=== PATIENT | female | born 1960 | race Caucasian/White ===

== ENCOUNTER 2020-07-16 20:20 | Inpatient (IN) | payer BC ==
[2020-07-16] MEDS ORDERED: SODIUM CHLORIDE 0.9% 1,000 ML IV STA ×2 (20:42)
[2020-07-16] MEDS ORDERED: SODIUM CHLORIDE 0.9% 500 ML 500 ML IV STA (20:42)
[2020-07-16] MEDS ORDERED: LORazepam 2 MG/ML INJ IV STA (20:42)
--- NOTE | 2020-07-16 20:43 | ED ---
Psych HPI <Homero Madrigal - Last Filed: 07/17/20 12:15> - General Source: patient, RN notes reviewed, old records reviewed Mode of arrival: ambulatory Limitations: altered mental status - History of Present Illness MD Complaint: suicidal ideation, feels depressed, altered mental status -: unknown Associated Psychiatric Symptoms: depression, suicidal ideation History of same: Yes Quality: constant Improves With: none Worsens With: none Context: not taking psychiatric medications, significant life stressor Associated Symptoms: denies other symptoms Treatments Prior to Arrival: placed on mental health hold If Self Harm: admits thoughts of self harm, has plan <Homero Slaughter - Last Filed: 07/20/20 22:48> - General Chief Complaint: Psychiatric Symptoms Stated Complaint: mental health Time Seen by Provider: 07/16/20 20:27 - History of Present Illness Initial Comments: This is a 51-year-old female who presents under suicidal ideation secondary significant life stress or impending divorce, significant intoxication tonight making threats of suicide per report. Patient herself admits to not taking her normal medications both blood pressure medications as well as psychiatric medications (Homero Slaughter) - Related Data Home Medications Medication Instructions Recorded Confirmed Cetirizine HCl [Zyrtec] 10 mg PO DAILY 07/17/20 07/17/20 Cyanocobalamin (Vitamin B-12) 1,000 mcg PO DAILY 07/17/20 07/17/20 [Vitamin B-12] Metoprolol Succinate [Toprol XL] 50 mg PO DAILY 07/17/20 07/17/20 Omeprazole 20 mg PO DAILY 07/17/20 07/17/20 Venlafaxine HCl [Effexor XR] 75 mg PO DAILY 07/17/20 07/17/20 Allergies Allergy/AdvReac Type Severity Reaction Status Date / Time No Known Allergies Allergy Verified 07/17/20 16:45 Review of Systems ROS Other: All systems not noted in ROS Statement are negative. <Homero Madrigal - Last Filed: 07/17/20 12:15> ROS Other: All systems not noted in ROS Statement are negative. <Homero Slaughter - Last Filed: 07/20/20 22:48> ROS Statement: Those systems with pertinent positive or pertinent negative responses have been documented in the HPI. Past Medical History Past Medical History: Hypertension History of Any Multi-Drug Resistant Organisms: None Reported Additional Past Surgical History / Comment(s): broken pelvis and broken left chrissy t-surgical repair. Past Psychological History: Anxiety Smoking Status: Never smoker Past Alcohol Use History: Occasional Past Drug Use History: None Reported <Homero Slaughter - Last Filed: 07/20/20 22:48> General Exam General appearance: alert, in no apparent distress Head exam: Present: atraumatic, normocephalic, normal inspection Eye exam: Present: normal appearance, PERRL, EOMI. Absent: scleral icterus, conjunctival injection, periorbital swelling ENT exam: Present: normal exam, mucous membranes moist Neck exam: Present: normal inspection. Absent: tenderness, meningismus, lymphadenopathy Respiratory exam: Present: normal lung sounds bilaterally. Absent: respiratory distress, wheezes, rales, rhonchi, stridor Cardiovascular Exam: Present: regular rate, normal rhythm, tachycardia, normal heart sounds. Absent: systolic murmur, diastolic murmur, rubs, gallop, clicks GI/Abdominal exam: Present: soft, normal bowel sounds. Absent: distended, tenderness, guarding, rebound, rigid Extremities exam: Present: normal inspection, full ROM, normal capillary refill. Absent: tenderness, pedal edema, joint swelling, calf tenderness Back exam: Present: normal inspection Neurological exam: Present: alert, oriented X3, CN II-XII intact Psychiatric exam: Present: normal affect, normal mood Skin exam: Present: warm, dry, intact, normal color. Absent: rash <Homero Slaughter - Last Filed: 07/20/20 22:48> Course <Homero Slaughter - Last Filed: 07/20/20 22:48> Vital Signs 07/16/20 07/16/20 07/16/20 20:23 22:00 22:42 Temperature 98.6 F Pulse Rate 142 H 119 H 113 H Respiratory 24 18 18 Rate Blood Pressure 176/104 109/77 152/89 O2 Sat by Pulse 97 97 100 Oximetry 07/16/20 07/16/20 07/17/20 23:08 23:37 01:00 Temperature Pulse Rate 113 H 104 H 109 H Respiratory 18 18 18 Rate Blood Pressure 135/89 139/89 119/65 O2 Sat by Pulse 97 95 95 Oximetry 07/17/20 07/17/20 07/17/20 04:25 06:55 08:00 Temperature 98.2 F Pulse Rate 105 H 110 H Respiratory 16 16 16 Rate Blood Pressure 148/82 155/82 O2 Sat by Pulse 95 96 96 Oximetry 07/17/20 07/17/20 07/17/20 09:00 10:00 11:00 Temperature Pulse Rate 102 H Respiratory 16 16 16 Rate Blood Pressure 151/108 O2 Sat by Pulse 99 Oximetry - Reevaluation(s) Reevaluation #1: 07/16/20 21:50 Medical record is reviewed 07/16/20 22:20 Patient is significantly intoxicated not medically clear for 8 hours (Homero Slaughter) Medical Decision Making - Lab Data Result diagrams: 07/16/20 21:18 07/16/20 21:18 <Homero Madrigal - Last Filed: 07/17/20 12:15> - Lab Data Result diagrams: 07/16/20 21:18 07/16/20 21:18 - EKG Data -: EKG Interpreted by Me (KG shows sinus tachycardia 141 ND 128 QRS 62 QTC 557) <Homero Slaughter - Last Filed: 07/20/20 22:48> - Medical Decision Making I filled out a clinical certain after interviewing the patient. (Homero Madrigal) 59 female to the ED for psych evaluation and will admit for evaluation and treatment (Homero Slaughter) - Lab Data Lab Results 07/16/20 07/16/20 07/16/20 Range/Units 21:18 21:18 21:18 WBC 7.3 (3.8-10.6) k/uL RBC 4.26 (3.80-5.40) m/uL Hgb 13.9 (11.4-16.0) gm/dL Hct 43.4 (34.0-46.0) % MCV 101.9 H (80.0-100.0) fL MCH 32.6 (25.0-35.0) pg MCHC 32.0 (31.0-37.0) g/dL RDW 14.5 (11.5-15.5) % Plt Count 291 (150-450) k/uL Neutrophils % 65 % Lymphocytes % 25 % Monocytes % 6 % Eosinophils % 0 % Basophils % 1 % Neutrophils # 4.7 (1.3-7.7) k/uL Lymphocytes # 1.8 (1.0-4.8) k/uL Monocytes # 0.4 (0-1.0) k/uL Eosinophils # 0.0 (0-0.7) k/uL Basophils # 0.1 (0-0.2) k/uL Macrocytosis Slight Sodium 139 (137-145) mmol/L Potassium 4.2 (3.5-5.1) mmol/L Chloride 100 (98-107) mmol/L Carbon Dioxide 17 L (22-30) mmol/L Anion Gap 22 mmol/L BUN 11 (7-17) mg/dL Creatinine 0.53 (0.52-1.04) mg/dL Est GFR (CKD-EPI)AfAm >90 (>60 ml/min/1.73 sqM) Est GFR (CKD-EPI)NonAf >90 (>60 ml/min/1.73 sqM) Glucose 86 (74-99) mg/dL Calcium 9.5 (8.4-10.2) mg/dL Total Bilirubin 0.5 (0.2-1.3) mg/dL AST 119 H (14-36) U/L ALT 102 H (4-34) U/L Alkaline Phosphatase 138 H (38-126) U/L Total Protein 7.7 (6.3-8.2) g/dL Albumin 4.8 (3.5-5.0) g/dL Lipase 67 (23-300) U/L Urine Color Yellow Urine Appearance Clear (Clear) Urine pH 5.0 (5.0-8.0) Ur Specific [place] 1.018 (1.001-1.035) Urine Protein 1+ H (Negative) Urine Glucose (UA) Negative (Negative) Urine Ketones 2+ H (Negative) Urine Blood Trace H (Negative) Urine Nitrite Negative (Negative) Urine Bilirubin Negative (Negative) Urine Urobilinogen <2.0 (<2.0) mg/dL Ur Leukocyte Esterase Negative (Negative) Urine WBC <1 (0-5) /hpf Ur Squamous Epith Cells 1 (0-4) /hpf Hyaline Casts 28 H (0-2) /lpf Urine Mucus Rare H (None) /hpf Salicylates <1.0 mg/dL Urine Opiates Screen Not Detected (NotDetected) Ur Oxycodone Screen Not Detected (NotDetected) Urine Methadone Screen Not Detected (NotDetected) Ur Propoxyphene Screen Not Detected (NotDetected) Acetaminophen <10.0 ug/mL Ur Barbiturates Screen Not Detected (NotDetected) U Tricyclic Antidepress Not Detected (NotDetected) Ur Phencyclidine Scrn Not Detected (NotDetected) Ur Amphetamines Screen Not Detected (NotDetected) U Methamphetamines Scrn Not Detected (NotDetected) U Benzodiazepines Scrn Detected H (NotDetected) Urine Cocaine Screen Not Detected (NotDetected) U Marijuana (THC) Screen Not Detected (NotDetected) Serum Alcohol 262 H* mg/dL Disposition Time of Disposition: 12:18 <Homero Madrigal - Last Filed: 07/17/20 12:15> Is patient prescribed a controlled substance at d/c from ED?: No <Homero Slaughter - Last Filed: 07/20/20 22:48> Clinical Impression: Suicidal ideation, Depression Disposition: TRANSFER TO PSYCH HOSP/UNIT Condition: Fair
[2020-07-16 21:28] LABS: Basophils # (A) 0.1 k/uL (0-0.2); Basophils % (A) 1 %; Eosinophils % (A) 0 %; HCT 43.4 % (34.0-46.0); HGB 13.9 gm/dL (11.4-16.0); Lymphocytes # (A) 1.8 k/uL (1.0-4.8); Lymphocytes % (A) 25 %; MCH 32.6 pg (25.0-35.0); MCV 101.9 fL (80.0-100.0); Macrocytosis Slight; Mean Platelet Volume 7.1; Monocytes # (A) 0.4 k/uL (0-1.0); Monocytes % (A) 6 %; Neutrophils # (A) 4.7 k/uL (1.3-7.7); Neutrophils % (A) 65 %; Platelet Count 291 k/uL (150-450); RBC 4.26 m/uL (3.80-5.40); RDW 14.5 % (11.5-15.5); WBC 7.3 k/uL (3.8-10.6)
[2020-07-16 21:37] LABS: ALT 102 U/L (4-34); AST 119 U/L (14-36); Acetaminophen <10.0 ug/mL; African American GFR (CKD) >90 (>60 ml/min/1.73 sqM); Albumin 4.8 g/dL (3.5-5.0); Alkaline Phosphatase 138 U/L (38-126); Anion Gap 22 mmol/L; Blood Urea Nitrogen 11 mg/dL (7-17); Calcium 9.5 mg/dL (8.4-10.2); Carbon Dioxide 17 mmol/L (22-30); Chloride 100 mmol/L (98-107); Glucose 86 mg/dL (74-99); Non-African American GFR(CKD) >90 (>60 ml/min/1.73 sqM); Potassium 4.2 mmol/L (3.5-5.1); Salicylate <1.0 mg/dL; Sodium 139 mmol/L (137-145); Total Bilirubin 0.5 mg/dL (0.2-1.3); Total Protein 7.7 g/dL (6.3-8.2)
--- NOTE | 2020-07-16 21:38 | XR ---
EXAMINATION TYPE: XR chest 1V DATE OF EXAM: 07/16/2020 COMPARISON: NONE HISTORY: Altered mental status. TECHNIQUE: Single frontal view of the chest is obtained. FINDINGS: There is no focal air space opacity, pleural effusion, or pneumothorax seen. The cardiac silhouette size is within normal limits. The osseous structures are intact. IMPRESSION: No acute process.
[2020-07-16] MEDS ORDERED: LABETALOL 5 MG/ML VIAL MDV IVP STA (21:43)
[2020-07-16 21:55] LABS: Appearance,Urine Clear (Clear); Bilirubin,Urine Negative (Negative); Blood,Urine Trace (Negative); Color,Urine Yellow; Glucose,Urine (UA) Negative (Negative); Hyaline Casts,Urine 28 /lpf (0-2); Ketones,Urine 2+ (Negative); Leukocyte Esterase,Urine Negative (Negative); Mucus,Urine Rare /hpf; Nitrite,Urine Negative (Negative); Protein,Urine 1+ (Negative); Specific Gravity,Urine 1.018 (1.001-1.035); Squamous Epithelial Cell,Urine 1 /hpf (0-4); Urobilinogen,Urine <2.0 mg/dL (<2.0); WBC,Urine <1 /hpf (0-5)
[2020-07-16 21:57] LABS: Amphetamine Screen,Urine Not Detected (NotDetected); Barbiturate Screen,Urine Not Detected (NotDetected); Benzodiazepines Screen,Urine Detected (NotDetected); Cocaine Screen,Urine Not Detected (NotDetected); Methadone Screen, Urine Not Detected (NotDetected); Opiate Screen,Urine Not Detected (NotDetected); Oxycodone Screen, Urine Not Detected (NotDetected); Phencyclidine Screen,Urine Not Detected (NotDetected); Tricyclic Antidepressant,Urine Not Detected (NotDetected); Urn Cannabinoid Scrn Not Detected (NotDetected)
[2020-07-16 22:07] LABS: Alcohol 262 mg/dL
[2020-07-17] MEDS ORDERED: ALPRAZolam 1 MG TAB PO PRN (04:15)
[2020-07-17] MEDS ORDERED: IBUPROFEN 400 MG TAB PO PRN (04:16)
[2020-07-17] MEDS ORDERED: ACETAMINOPHEN TAB 325 MG TAB PO PRN (04:16)
[2020-07-17] MEDS ORDERED: chlordiazePOXIDE 25 MG CAP PO STA (04:53)
[2020-07-17] MEDS: PANTOPRAZOLE 40 MG TABLET PO SCH (13:01)
[2020-07-17] MEDS: METOPROLOL SUCCINATE (ER) 50 MG TAB.ER.24H PO SCH (13:02)
[2020-07-17] MEDS: VENLAFAXINE HCL ER 75 MG CAP PO SCH (13:05)
[2020-07-17] MEDS ORDERED: LORATADINE 10 MG TAB PO SCH (13:30)
[2020-07-17] MEDS: LORATADINE 10 MG TAB PO SCH (13:31)
[2020-07-17] MEDS ORDERED: MAG HYDROX/AL HYDROX/SIMETH 30 ML CUP PO PRN (13:55)
[2020-07-17] MEDS ORDERED: ZIPRASIDONE 20 MG VIAL IM PRN (13:55)
[2020-07-17] MEDS ORDERED: LORazepam 2 MG/ML INJ IM PRN (13:57)
[2020-07-17] MEDS: CYANOCOBALAMIN 500 MCG TAB PO SCH (14:14)
[2020-07-17] MEDS: LORazepam 1 MG TAB PO PRN ×2 (14:14→20:58)
[2020-07-17] MEDS ORDERED: cloNIDine HCL 0.2 MG TAB PO STA (16:49)
--- NOTE | 2020-07-18 01:03 | P.MDCNMH ---
History of Present Illness H&P Date: 07/17/20 Chief Complaint: medical evaluation 59 year old female with hypertension controlled with meds, and depression/anxiety patient was brought in by her daughter for evaluation due to suicidal ideation. patient has suicidal attempt about 10 months ago , when she jumped off the rails of her home second level sustained fractures of her foot and pelvis requiring external fixation for months. she is going through a divorce and has been having financial difficulties as a family. she currently denies any suicidal ideation. she claims that she has feel on the stairs about few days ago without any loss of consciousness, she claims due to her unbalanced gait since her injury back in September of this year, . she sustained bruising over her right eye. she currently denies any chest pain , trouble breathing, fever, chills, nausea or vomiting, denies any headache, changes in her vision, or focal neuro deficits. she denies any medical concerns at this time ED noted , that her daughter brought the patient in due to suicidal ideation and being under alcohol influence . patient denies heavy alcohol use, and claims that she only drinks socially , she is requesting to be released. she denies drugs or smoking Review of Systems Pertinent positives as noted in HPI. All other systems were reviewed and are negative Past Medical History Past Medical History: Hypertension Additional Past Medical History / Comment(s): multiple Fx'd bones from a fall, her pelvis, left foot, balance is off. Hairline fx of neck from fall. History of Any Multi-Drug Resistant Organisms: None Reported Additional Past Surgical History / Comment(s): broken pelvis and broken left foot-surgical repair. Past Anesthesia/Blood Transfusion Reactions: No Reported Reaction Past Psychological History: Anxiety, Depression Additional Psychological History / Comment(s): Hx of jumping off 2nd story [place]. Smoking Status: Never smoker Past Alcohol Use History: Occasional Past Drug Use History: None Reported - Past Family History Family Family Medical History: No Reported History Medications and Allergies Home Medications Medication Instructions Recorded Confirmed Type Cetirizine HCl [Zyrtec] 10 mg PO DAILY 07/17/20 07/17/20 History Cyanocobalamin (Vitamin B-12) 1,000 mcg PO DAILY 07/17/20 07/17/20 History [Vitamin B-12] Metoprolol Succinate [Toprol XL] 50 mg PO DAILY 07/17/20 07/17/20 History Omeprazole 20 mg PO DAILY 07/17/20 07/17/20 History Venlafaxine HCl [Effexor XR] 75 mg PO DAILY 07/17/20 07/17/20 History Allergies Allergy/AdvReac Type Severity Reaction Status Date / Time No Known Allergies Allergy Verified 07/17/20 16:45 Physical Exam Vitals: Vital Signs Temp Pulse Pulse Resp BP BP Pulse Ox 07/17/20 21:00 106/64 07/17/20 19:22 84 16 92/60 07/17/20 17:29 178/102 07/17/20 16:05 99.4 F 100 20 177/124 07/17/20 15:02 127 H 20 197/115 07/17/20 14:08 99.1 F 122 H 20 195/99 07/17/20 11:00 102 H 16 151/108 99 07/17/20 10:00 16 07/17/20 09:00 16 07/17/20 08:00 16 96 07/17/20 06:55 98.2 F 110 H 16 155/82 96 07/17/20 04:25 105 H 16 148/82 95 07/17/20 01:00 109 H 18 119/65 95 Intake and Output 07/17/20 07/17/20 07/18/20 14:59 22:59 06:59 Other: Weight 61.235 kg Constitutional: No acute distress, conversant, pleasant Eyes: Anicteric sclerae, moist conjunctiva, Pupils equal round reactive to light ENMT: Bruising and ecchymosis over the right side of the forehead with periorbital bruising no open wounds or cuts Oropharynx clear, no erythema, or exudates Neck: Supple, FROM, no masses, or JVD No carotid bruits No thyromegaly Lungs: Clear to auscultation Clear to percussion Normal respiratory effort, no accessory muscle use Cardiovascular: Heart regular in rate and rhythm, No murmurs, gallops, or rubs No peripheral edema Abdominal: Soft Nontender, no guarding, rebound or rigidity Abdomen moving with respiration Normoactive bowel sounds No hepatomegaly, No splenomegaly No palpable mass No abdominal wall hernia noted Skin: Normal temperature, tone, texture, turgor No induration No subcutaneous nodules No rash, lesions No ulcers Extremities: No digital cyanosis No clubbing Pedal pulses intact and symmetrical Radial pulses intact and symmetrical No calf tenderness Psychiatric: Alert and oriented to person, place and time depressed affect fair judgement Neuro Muscles Strength 5/5 in all 4 extremities Sensation to light touch grossly present throughout Cranial nerves II-XII grossly intact No focal sensory deficits Lymphatics: no palpable cervical or supraclavicular , or inguinal lymph nodes Cranial Nerve Examination - Cranial Nerves Cranial Nerve II- Optic: Intact Cranial Nerve III- Oculomotor: Intact Cranial Nerve IV- Trochlear: Intact Cranial Nerve V- Trigeminal: Intact Cranial Nerve - Abducens: Intact Cranial Nerve VII- Facial: Intact Cranial Nerve VIII- Auditory: Intact Cranial Nerve IX- Glossopharyngeal: Intact Cranial Nerve X- Vagus: Intact Cranial Nerve XI- Accessory: Intact Cranial Nerve XII- Hypoglossal: Intact Results CBC & Chem 7: 07/16/20 21:18 07/16/20 21:18 Assessment and Plan Assessment: suicidal ideation , and depression management per psych hypertension , controlled with meds continue metoprolol low risk for DVT, patient ambulatory Thank you for allowing us to participate in the care of this patient. We will follow peripherally. Do not hesitate to contact us with questions. Someone can be reached from the [facility] hospitalist group at all hours of the day at [phone].
[2020-07-18] MEDS: VENLAFAXINE HCL ER 75 MG CAP PO SCH (09:02)
[2020-07-18] MEDS: METOPROLOL SUCCINATE (ER) 50 MG TAB.ER.24H PO SCH (09:02)
[2020-07-18] MEDS: THIAMINE 100 MG TAB PO SCH (09:02)
[2020-07-18] MEDS: CYANOCOBALAMIN 500 MCG TAB PO SCH (09:02)
[2020-07-18] MEDS: LORATADINE 10 MG TAB PO SCH (09:02)
[2020-07-18] MEDS: PANTOPRAZOLE 40 MG TABLET PO SCH (09:02)
[2020-07-18] MEDS: LORazepam 1 MG TAB PO PRN ×2 (09:03→16:10)
--- NOTE | 2020-07-18 10:35 | P.HP ---
Psychiatric H&P - . H&P Date: 07/18/20 History & Physical: Allergies Allergy/AdvReac Type Severity Reaction Status Date / Time No Known Allergies Allergy Verified 07/17/20 16:45 Vital Signs Temp 99.4 F 07/17/20 16:05 Pulse 114 H 07/18/20 09:00 Resp 16 07/17/20 19:22 BP 142/79 07/18/20 09:00 Pulse Ox 99 07/17/20 11:00 Intake & Output 07/17/20 07/18/20 07/18/20 18:59 06:59 18:59 Weight 61.235 kg Laboratory Last Values WBC 7.3 k/uL (3.8-10.6) 07/16/20 21:18 RBC 4.26 m/uL (3.80-5.40) 07/16/20 21:18 Hgb 13.9 gm/dL (11.4-16.0) 07/16/20 21:18 Hct 43.4 % (34.0-46.0) 07/16/20 21:18 MCV 101.9 fL (80.0-100.0) H 07/16/20 21:18 MCH 32.6 pg (25.0-35.0) 07/16/20 21:18 MCHC 32.0 g/dL (31.0-37.0) 07/16/20 21:18 RDW 14.5 % (11.5-15.5) 07/16/20 21:18 Plt Count 291 k/uL (150-450) 07/16/20 21:18 Neutrophils % 65 % 07/16/20 21:18 Lymphocytes % 25 % 07/16/20 21:18 Monocytes % 6 % 07/16/20 21:18 Eosinophils % 0 % 07/16/20 21:18 Basophils % 1 % 07/16/20 21:18 Neutrophils # 4.7 k/uL (1.3-7.7) 07/16/20 21:18 Lymphocytes # 1.8 k/uL (1.0-4.8) 07/16/20 21:18 Monocytes # 0.4 k/uL (0-1.0) 07/16/20 21:18 Eosinophils # 0.0 k/uL (0-0.7) 07/16/20 21:18 Basophils # 0.1 k/uL (0-0.2) 07/16/20 21:18 Macrocytosis Slight 07/16/20 21:18 Sodium 139 mmol/L (137-145) 07/16/20 21:18 Potassium 4.2 mmol/L (3.5-5.1) 07/16/20 21:18 Chloride 100 mmol/L (98-107) 07/16/20 21:18 Carbon Dioxide 17 mmol/L (22-30) L 07/16/20 21:18 Anion Gap 22 mmol/L 07/16/20 21:18 BUN 11 mg/dL (7-17) 07/16/20 21:18 Creatinine 0.53 mg/dL (0.52-1.04) 07/16/20 21:18 Est GFR (CKD-EPI)AfAm >90 (>60 ml/min/1.73 sqM) 07/16/20 21:18 Est GFR (CKD-EPI)NonAf >90 (>60 ml/min/1.73 sqM) 07/16/20 21:18 Glucose 86 mg/dL (74-99) 07/16/20 21:18 Calcium 9.5 mg/dL (8.4-10.2) 07/16/20 21:18 Total Bilirubin 0.5 mg/dL (0.2-1.3) 07/16/20 21:18 AST 119 U/L (14-36) H 07/16/20 21:18 ALT 102 U/L (4-34) H 07/16/20 21:18 Alkaline Phosphatase 138 U/L (38-126) H 07/16/20 21:18 Total Protein 7.7 g/dL (6.3-8.2) 07/16/20 21:18 Albumin 4.8 g/dL (3.5-5.0) 07/16/20 21:18 Lipase 67 U/L (23-300) 07/16/20 21:18 Urine Color Yellow 07/16/20 21:18 Urine Appearance Clear (Clear) 07/16/20 21:18 Urine pH 5.0 (5.0-8.0) 07/16/20 21:18 Ur Specific [place] 1.018 (1.001-1.035) 07/16/20 21:18 Urine Protein 1+ (Negative) H 07/16/20 21:18 Urine Glucose (UA) Negative (Negative) 07/16/20 21:18 Urine Ketones 2+ (Negative) H 07/16/20 21:18 Urine Blood Trace (Negative) H 07/16/20 21:18 Urine Nitrite Negative (Negative) 07/16/20 21:18 Urine Bilirubin Negative (Negative) 07/16/20 21:18 Urine Urobilinogen <2.0 mg/dL (<2.0) 07/16/20 21:18 Ur Leukocyte Esterase Negative (Negative) 07/16/20 21:18 Urine WBC <1 /hpf (0-5) 07/16/20 21:18 Ur Squamous Epith Cells 1 /hpf (0-4) 07/16/20 21:18 Hyaline Casts 28 /lpf (0-2) H 07/16/20 21:18 Urine Mucus Rare /hpf (None) H 07/16/20 21:18 Salicylates <1.0 mg/dL 07/16/20 21:18 Urine Opiates Screen Not Detected (NotDetected) 07/16/20 21:18 Ur Oxycodone Screen Not Detected (NotDetected) 07/16/20 21:18 Urine Methadone Screen Not Detected (NotDetected) 07/16/20 21:18 Ur Propoxyphene Screen Not Detected (NotDetected) 07/16/20 21:18 Acetaminophen <10.0 ug/mL 07/16/20 21:18 Ur Barbiturates Screen Not Detected (NotDetected) 07/16/20 21:18 U Tricyclic Antidepress Not Detected (NotDetected) 07/16/20 21:18 Ur Phencyclidine Scrn Not Detected (NotDetected) 07/16/20 21:18 Ur Amphetamines Screen Not Detected (NotDetected) 07/16/20 21:18 U Methamphetamines Scrn Not Detected (NotDetected) 07/16/20 21:18 U Benzodiazepines Scrn Detected (NotDetected) H 07/16/20 21:18 Urine Cocaine Screen Not Detected (NotDetected) 07/16/20 21:18 U Marijuana (THC) Screen Not Detected (NotDetected) 07/16/20 21:18 Serum Alcohol 262 mg/dL H* 07/16/20 21:18 07/18/20 10:25 IDENTIFYING DATA: Patient is a 59-year-old female who is currently going through a divorce, lives alone in a house has 5 kids. HPI: Patient presented to the hospital yesterday with complaints of suicidal ideations, life stressors and alcohol intoxication. Patient had admitted in the ER that she was going noncompliant with her medications. Patient also endorsed several life stressors including going through divorce and financial stressors. Patient's AST/ALT were elevated on admission, UDS was positive for benzodiazepines. Blood alcohol level was 262. Patient was brought in on a petition by her daughter claiming that patient was threatening suicide over phone calls and has a history of jumping off her second story [place] in a suicide attempt 10 months ago. Patient was evaluated today and agreeable to speak with scientific writer. Patient had poor insight and minimized her symptoms and her need for hospitalization. Patient was preoccupied with discharge and claims that she has "lots of phone calls I have to make in things I have to do with my house". She endorsed not feeling "good for the last few weeks" and states that "something was wrong with my blood pressure". She claims that she was having financial issues and also transitioning to selling her house and finding a rental property. She claims that on Thursday she was feeling really sick and feeling dehydrated and also overwhelmed with stressors. She claims that she has been going through divorce as her cheated on her. She claims that she called her daughter to visit her and bring her food as she was not feeling well enough to go and get it herself and claims that "she called EMS on me". When asked why she would do that she states that "my daughters try to take my 's side of things and trying to make my divorce worse for me". She claims that her estranged daughter is using this against her. She was minimizing her alcohol use. She states that she was drinking a flask of vodka for the past 2 days. She claims that her mood is "overwhelmed" she denies any anxiety this time and claims that her sleep is fair.. Patient denies any current suicidal or homicidal ideations intent or plan. At this time patient denies any auditory or visual hallucinations. Patient denies any flight of ideas racing thoughts and increased in goal directed behavior. Patient denies any history of manic like symptoms or episodes. Patient admits to using alcohol as noted above. She states that she has been going to [employer] meetings. She denies any cigarette use or any other recreational drug use. PAST PSYCHIATRIC HISTORY: Patient states that she has a history of depression and anxiety. Issues on several different psychiatric medications including Effexor, Xanax and Lexapro in the past. She claims that she was previously hospitalized less than a year ago at [facility] for a suicide attempt where she attempted to jump off a second-story balcony at her home and fractured her foot and pelvis. She states that she was following up with Dr. Prado however now follows up with her primary care physician. She claims that she has had one suicide attempt in the past which was approximately 10 months ago where she jumped off the balcony. PMH: Hypertension. ALLERGIES: as per EMR CHEMICAL DEPENDENCY HISTORY: as per HPI FAMILY PSYCHIATRIC/SUBSTANCE USE HISTORY: denies SOCIAL HISTORY: Patient was born and raised in [place] and then moved to [place] in [facility]. She claims that she completed her undergraduate in college and also completed a master's. 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 She claims that she currently lives alone in a house is going through a divorce. She denies any legal problems in the past. MENTAL STATUS EXAM: General Appearance: Patient appears to be stated age is alert, directable, and is guarded/evasive. Patient appears to have poor hygiene and grooming. Behavior: Patient is seated without any agitated behavior. Speech: Patient's speech is fluent and nonpressured. Soft tone Mood/Affect: Patient reports their mood is "overwhelmed", affect is congruent and constricted. Suicidality/Homicidality: Patient denies having any homicidal ideation intent or plan. Denies any suicidal ideations intent or plan Perceptions: Patient denies any visual hallucinations and denies any auditory hallucinations Though content/process: There is no evidence of any delusional thought content and thought process is linear and goal-directed. Patient minimizes her alcohol use and also her depression. Preoccupied with discharge. Memory and concentration: AOX3, grossly intact for the purposes of this session. Can spell "WORLD" backwards Judgment and insight: poor STRENGTHS/WEAKNESSES: strength is that patient is resilient. Weakness is that patient has poor judgment and is impulsive INTELLECT: average IMPRESSIONS: Major depressive disorder, recurrent, severe, without psychotic features Anxiety disorder unspecified Alcohol abuse PLAN: -Patient is admitted under involuntary status to MHU for stabilization of psychiatric symptoms and safety. Patient has signed medication consent and is placed in patient's chart. A second certification was completed and along with petition will be filed for court. -Medications : Will start patient on Effexor, patient's home dose is 75 mg and will be increased to 150 mg starting tomorrow. Patient is agreeable to take melatonin 6 mg daily at bedtime for insomnia. -CIWA protocol with Ativan when necessary for alcohol withdrawal. -Ativan and Geodon PRN for agitation/aggression -Started thiamine, MVM for etoh use -Ordered hepatic function panel for tomorrow, EKG today as patient's QTc interval was elevated. -Patient was counselled on substance abuse and desired to cut back on use however was superficial about this and minimizes her alcohol use -Patient was informed of the risks, benefits and side effects of the medication and patient verbally consented to taking the medications. Patient signed med consent form and was placed in chart. -Internal Medicine consult to perform medical evaluation and physical. -NRT - not needed as patient does not smoke -SW on board for discharge planning. Encourage patient to participate in groups to work on coping skills. We'll continue to work with patient on treating her symptoms and also seeing if patient would like to be started on medications for alcohol use disorder or go to rehab.
[2020-07-18] MEDS: FOLIC ACID 1 MG TAB PO SCH (12:12)
[2020-07-18] MEDS: MULTIVITAMINS, THERA 1 EACH TAB PO SCH (12:12)
[2020-07-18] MEDS: MAGNESIUM HYDROXIDE 2,400 MG/10 ML CUP PO PRN (12:14)
[2020-07-18 18:53] LABS: Hemoglobin A1C 4.9 % (4.0-6.0)
[2020-07-18] MEDS: MELATONIN 3 MG TABLET PO SCH (20:51)
[2020-07-19] MEDS: LORATADINE 10 MG TAB PO SCH (08:23)
[2020-07-19] MEDS: PANTOPRAZOLE 40 MG TABLET PO SCH (08:23)
[2020-07-19] MEDS: THIAMINE 100 MG TAB PO SCH (08:23)
[2020-07-19] MEDS: METOPROLOL SUCCINATE (ER) 50 MG TAB.ER.24H PO SCH (08:23)
[2020-07-19] MEDS: LORazepam 1 MG TAB PO PRN ×2 (08:24→15:30)
[2020-07-19] MEDS: VENLAFAXINE HCL ER 150 MG CAP PO SCH (08:24)
[2020-07-19] MEDS: CYANOCOBALAMIN 500 MCG TAB PO SCH (08:24)
[2020-07-19] MEDS: FOLIC ACID 1 MG TAB PO SCH (08:24)
[2020-07-19] MEDS: MULTIVITAMINS, THERA 1 EACH TAB PO SCH (08:24)
--- NOTE | 2020-07-19 09:13 | P.PN ---
Progress Note - Text Progress Note Date: 07/19/20 Interval History: Patient was seen wandering the hallways this morning and was directable and ag reeable to speak with physician underwriter in the office. Patient continues to minimize her depression and alcohol abuse. She continues to paint a picture of family dynamics and that her daughter "is against me" and that she is trying to "bury me in this divorce". She claims that she was able to go to some groups yesterday and spoke with the patient's right advocate about the court process. Patient was superficial with physician underwriter and guarded. She claims that she has no overnight complaints and states that she slept well. She also claimed that her mood and anxiety even improving. She continues to be preoccupied with discharge. At this time patient denies any suicidal or homical ideations, intent or plan. Patient denies any auditory, visual hallucinations and denies any paranoia or delusions. Patient denies any side effects from the medications and has been compliant with meds. Mental Status Exam: General Appearance: Patient appears to be stated age is alert, directable, and is guarded/evasive. Patient appears to have poor hygiene and grooming. Behavior: Patient is seated without any agitated behavior. Superficial. Speech: Patient's speech is fluent and nonpressured. Soft tone Mood/Affect: Patient reports their mood is "better", affect is incongruent and constricted. Suicidality/Homicidality: Patient denies having any homicidal ideation intent or plan. Denies any suicidal ideations intent or plan Perceptions: Patient denies any visual hallucinations and denies any auditory hallucinations Though content/process: There is no evidence of any delusional thought content and thought process is linear and goal-directed. Patient minimizes her alcohol use and also her depression. Preoccupied with discharge. Memory and concentration: AOX3, grossly intact for the purposes of this session Judgment and insight: poor/superficial, improving mildly Assessment Major depressive disorder, recurrent, severe, without psychotic features Anxiety disorder unspecified Alcohol abuse Plan: -Patient continues to meet criteria for inpatient psychiatric admission for symptom stabilization and safety. Patient has medication consent and was placed in patient's chart. Patient's deferral date will be today and also for court hearing scheduled for August 01. -Medications: Continue with Effexor 150 mg daily for mood/anxiety. Continue with melatonin 6 mg nightly for insomnia. -CIWA protocol with Ativan when necessary for alcohol withdrawal. -Started thiamine, MVM for etoh use -hepatic function panel - pending, EKG pending as patient's QTc interval was elevated. -When necessary Ativan and Geodon for agitation/aggression. -NRT - not needed as patient does not smoke. -SW on board for discharge planning. Encouraged the patient to participate in milieu. Patient continues to be superficial about this and minimizes her alcohol use. We'll continue to work with patient on treating her symptoms and also seeing if patient would like to be started on medications for alcohol use disorder or go to rehab. We will attempt to get release of information to speak with patient's daughter who petitioned her to gather more information.
[2020-07-19 12:03] LABS: Albumin 3.7 g/dL (3.5-5.0); Bilirubin, Delta 0.2 mg/dL (0.0-0.2); Bilirubin,Unconjugated 1.2 mg/dL (0.0-1.1); Total Bilirubin 1.4 mg/dL (0.2-1.3); Total Protein 6.4 g/dL (6.3-8.2)
[2020-07-19] MEDS: MELATONIN 3 MG TABLET PO SCH (20:20)
[2020-07-20] MEDS: LORATADINE 10 MG TAB PO SCH (09:11)
[2020-07-20] MEDS: METOPROLOL SUCCINATE (ER) 50 MG TAB.ER.24H PO SCH (09:11)
[2020-07-20] MEDS: FOLIC ACID 1 MG TAB PO SCH (09:11)
[2020-07-20] MEDS: PANTOPRAZOLE 40 MG TABLET PO SCH (09:11)
[2020-07-20] MEDS: CYANOCOBALAMIN 500 MCG TAB PO SCH (09:11)
[2020-07-20] MEDS: MULTIVITAMINS, THERA 1 EACH TAB PO SCH (09:11)
[2020-07-20] MEDS: VENLAFAXINE HCL ER 150 MG CAP PO SCH (09:12)
[2020-07-20] MEDS: LORazepam 1 MG TAB PO PRN (09:12)
[2020-07-20] MEDS: THIAMINE 100 MG TAB PO SCH (09:12)
--- NOTE | 2020-07-20 12:08 | P.PN ---
Progress Note - Text Progress Note Date: 07/20/20 Interval History: Patient was seen sitting in a group this morning and was directable and agreea ble to speak with health science writer in the office. Patient continues to minimize her alcohol use and her depression. She was guarded and evasive about her depression today. She claims that she is feeling "fine" and continues to be preoccupied with discharge. She states repeatedly that she is going through a "hard time" and claims that her daughter is "making the stuff up" regarding the petition. Patient continues to minimize her alcohol use and her past suicide attempt. Patient was superficial with health science writer and guarded. She claims that she has no overnight complaints and states that she slept well. She also claimed that her mood and anxiety even improving. At this time patient denies any suicidal or homical ideations, intent or plan. Patient denies any auditory, visual hallucinations and denies any paranoia or delusions. Patient denies any side effects from the medications and has been compliant with meds. Patient took an Ativan by mouth this morning for her anxiety. Mental Status Exam: General Appearance: Patient appears to be stated age is alert, directable, and is guarded/evasive. Patient appears to have poor hygiene and grooming. Behavior: Patient is seated without any agitated behavior. Superficial. Speech: Patient's speech is fluent and nonpressured. Soft tone Mood/Affect: Patient reports their mood is "ok", affect is incongruent and constricted. Suicidality/Homicidality: Patient denies having any homicidal ideation intent or plan. Denies any suicidal ideations intent or plan Perceptions: Patient denies any visual hallucinations and denies any auditory hallucinations Though content/process: Patient minimizes her alcohol use and also her depression. Preoccupied with discharge. Memory and concentration: AOX3, grossly intact for the purposes of this session Judgment and insight: poor/superficial, improving mildly Assessment Major depressive disorder, recurrent, severe, without psychotic features Anxiety disorder unspecified Alcohol abuse Plan: -Patient continues to meet criteria for inpatient psychiatric admission for symptom stabilization and safety. Patient has medication consent and was placed in patient's chart. Patient deferred court on 07/19/2020. -Medications: Continue with Effexor 150 mg daily for mood/anxiety. Continue with melatonin 6 mg nightly for insomnia. BuSpar 7.5 mg 3 times a day when necessary for anxiety. -CIWA protocol with Ativan when necessary for alcohol withdrawal, discontinue tomorrow. -Continue with thiamine, MVM for etoh use -hepatic function panel - AST and ALT are improving, EKG -was reviewed, improved QTc interval and normal sinus rhythm. -When necessary Ativan and Geodon for agitation/aggression. -NRT - not needed as patient does not smoke. -SW on board for discharge planning. Encouraged the patient to participate in milieu. Patient continues to be superficial about this and minimizes her alcohol use. We'll continue to work with patient on treating her symptoms and also seeing if patient would like to be started on medications for alcohol use disorder or go to rehab. cleaning and maintenance worker to reach out to family members including patient's , daughter and parents who are currently at patient's house to have a family meeting and discuss any concerns they may have about patient's condition. Patient is fairly guarded/evasive and blames several external factors for her condition. Likely discharge early next week.
[2020-07-20] MEDS: MELATONIN 3 MG TABLET PO SCH (21:36)
[2020-07-21] MEDS: CYANOCOBALAMIN 500 MCG TAB PO SCH (08:04)
[2020-07-21] MEDS: LORATADINE 10 MG TAB PO SCH (08:04)
[2020-07-21] MEDS: PANTOPRAZOLE 40 MG TABLET PO SCH (08:04)
[2020-07-21] MEDS: FOLIC ACID 1 MG TAB PO SCH (08:04)
[2020-07-21] MEDS: THIAMINE 100 MG TAB PO SCH (08:05)
[2020-07-21] MEDS: METOPROLOL SUCCINATE (ER) 50 MG TAB.ER.24H PO SCH (08:05)
[2020-07-21] MEDS: MULTIVITAMINS, THERA 1 EACH TAB PO SCH (08:05)
[2020-07-21] MEDS: VENLAFAXINE HCL ER 150 MG CAP PO SCH (08:05)
[2020-07-21] MEDS: ACETAMINOPHEN TAB 325 MG TAB PO PRN ×2 (08:06→23:25)
--- NOTE | 2020-07-21 09:14 | P.PN ---
Progress Note - Text Progress Note Date: 07/21/20 Interval History: Patient was seen wandering the hallways was directable and agreeable to speak with life insurance underwriter in the office. Patient continues to minimize her alcohol use and her depression. She continues to paint a picture that her daughter has been against her. She claims that her depression has been getting better however states that "I don't need to be here on the unit". She claims that she has been talking to her parents and they are coming to visit her today. She claims that she is feeling "fine" and continues to be preoccupied with discharge. She claims that she is trying to sell her house and move closer towards her family and her support system. Patient continues to minimize her alcohol use and her past suicide attempt. She claims that she has no overnight complaints and states that she slept well. At this time patient denies any suicidal or homical ideations, intent or plan. Patient denies any auditory, visual hallucinations and denies any paranoia or delusions. Patient denies any side effects from the medications and has been compliant with meds. Mental Status Exam: General Appearance: Patient appears to be stated age is alert, directable, and is guarded/evasive. Patient appears to have poor hygiene and grooming. Behavior: Patient is seated without any agitated behavior. Superficial. Speech: Patient's speech is fluent and nonpressured. Soft tone Mood/Affect: Patient reports their mood is "good", affect is incongruent and constricted. Suicidality/Homicidality: Patient denies having any homicidal ideation intent or plan. Denies any suicidal ideations intent or plan Perceptions: Patient denies any visual hallucinations and denies any auditory hallucinations Though content/process: Patient minimizes her alcohol use and also her depression. Preoccupied with discharge. Memory and concentration: AOX3, grossly intact for the purposes of this session Judgment and insight: poor/superficial, improving mildly Assessment Major depressive disorder, recurrent, severe, without psychotic features Anxiety disorder unspecified Alcohol abuse Plan: -Patient continues to meet criteria for inpatient psychiatric admission for symptom stabilization and safety. Patient has medication consent and was placed in patient's chart. Patient deferred court on 07/19/2020. -Medications: Continue with Effexor 150 mg daily for mood/anxiety. Continue with melatonin 6 mg nightly for insomnia. BuSpar 7.5 mg 3 times a day when necessary for anxiety. -Continue with thiamine, MVM for etoh use -hepatic function panel - AST and ALT are improving, EKG -was reviewed, improved QTc interval and normal sinus rhythm. -When necessary Ativan and Geodon for agitation/aggression. -NRT - not needed as patient does not smoke. -SW on board for discharge planning. Encouraged the patient to participate in milieu. Patient continues to be superficial about this and minimizes her alcohol use. We'll continue to work with patient on treating her symptoms and also seeing if patient would like to be started on medications for alcohol use disorder or go to rehab. Likely discharge early next week.
[2020-07-21] MEDS: MELATONIN 3 MG TABLET PO SCH (21:06)
[2020-07-21] MEDS: valACYclovir 500 MG TAB PO SCH (21:06)
[2020-07-21] MEDS: LORazepam 1 MG TAB PO PRN (23:25)
[2020-07-22 06:30] VITALS: RESP 16
[2020-07-22] MEDS: PANTOPRAZOLE 40 MG TABLET PO SCH (09:03)
[2020-07-22] MEDS: CYANOCOBALAMIN 500 MCG TAB PO SCH (09:03)
[2020-07-22] MEDS: METOPROLOL SUCCINATE (ER) 50 MG TAB.ER.24H PO SCH (09:03)
[2020-07-22] MEDS: LORATADINE 10 MG TAB PO SCH (09:03)
[2020-07-22] MEDS: FOLIC ACID 1 MG TAB PO SCH (09:03)
[2020-07-22] MEDS: valACYclovir 500 MG TAB PO SCH ×2 (09:04→21:54)
[2020-07-22] MEDS: VENLAFAXINE HCL ER 150 MG CAP PO SCH (09:04)
[2020-07-22] MEDS: MULTIVITAMINS, THERA 1 EACH TAB PO SCH (09:04)
[2020-07-22] MEDS: THIAMINE 100 MG TAB PO SCH (09:04)
--- NOTE | 2020-07-22 10:36 | P.PN ---
Progress Note - Text Progress Note Date: 07/22/20 Interval History: Patient was seen in part in group this morning was directable and agreeable to speak with typewriter operator automatic in the office. Patient appeared to be more genuine today about her depression and also her family issues. She states that "it's been so hard for me doing with this divorce". She went on to describe her life and also her stressors. She also claims that she has been fairly isolated to 2 the patient and make recently and claims that she was able to speak with her father and mother as they came to visit her in the hospital yesterday. She claims that she has no overnight complaints and states that she slept well. At this time patient denies any suicidal or homical ideations, intent or plan. Patient denies any auditory, visual hallucinations and denies any paranoia or delusions. Patient denies any side effects from the medications and has been compliant with meds. Mental Status Exam: General Appearance: Patient appears to be stated age is alert, directable, and is more cooperative today. Patient appears to have poor hygiene and grooming. Behavior: Patient is seated without any agitated behavior. less Superficial. Speech: Patient's speech is fluent and nonpressured. Soft tone Mood/Affect: Patient reports their mood is "better", affect is congruent and constricted. Suicidality/Homicidality: Patient denies having any homicidal ideation intent or plan. Denies any suicidal ideations intent or plan Perceptions: Patient denies any visual hallucinations and denies any auditory hallucinations Though content/process: Patient minimizes her alcohol use and also her depression. Preoccupied with discharge. More future oriented. Memory and concentration: AOX3, grossly intact for the purposes of this session Judgment and insight: improving mildly Assessment Major depressive disorder, recurrent, severe, without psychotic features Anxiety disorder unspecified Alcohol abuse Plan: -Patient continues to meet criteria for inpatient psychiatric admission for symptom stabilization and safety. Patient has medication consent and was placed in patient's chart. Patient deferred court on 07/19/2020. -Medications: Continue with Effexor 150 mg daily for mood/anxiety. Continue with melatonin 6 mg nightly for insomnia. BuSpar 7.5 mg 3 times a day when necessary for anxiety. -Continue with thiamine, MVM for etoh use -hepatic function panel - AST and ALT are improving, EKG -was reviewed, improved QTc interval and normal sinus rhythm. -When necessary Ativan and Geodon for agitation/aggression. -NRT - not needed as patient does not smoke. -SW on board for discharge planning. Encouraged the patient to participate in milieu. Patient is continuing to decline rehab and wants to do outpatient substance use treatment. Patient appears to be more genuine and able to speak more about her stressors and the past events in her life and also better planning for the future. Likely discharge tomorrow if patient does well overnight.
[2020-07-22] MEDS: MAGNESIUM HYDROXIDE 2,400 MG/10 ML CUP PO PRN (13:48)
[2020-07-22] MEDS: MELATONIN 3 MG TABLET PO SCH (21:55)
[2020-07-23 06:43] VITALS: TEMP 98.3
[2020-07-23] MEDS: VENLAFAXINE HCL ER 150 MG CAP PO SCH (07:49)
[2020-07-23] MEDS: MULTIVITAMINS, THERA 1 EACH TAB PO SCH (07:49)
[2020-07-23] MEDS: CYANOCOBALAMIN 500 MCG TAB PO SCH (07:49)
[2020-07-23] MEDS: FOLIC ACID 1 MG TAB PO SCH (07:49)
[2020-07-23] MEDS: METOPROLOL SUCCINATE (ER) 50 MG TAB.ER.24H PO SCH (07:49)
[2020-07-23] MEDS: PANTOPRAZOLE 40 MG TABLET PO SCH (07:49)
[2020-07-23] MEDS: THIAMINE 100 MG TAB PO SCH (07:49)
[2020-07-23] MEDS: LORATADINE 10 MG TAB PO SCH (07:49)
[2020-07-23] MEDS: valACYclovir 500 MG TAB PO SCH (07:49)
[2020-07-23 08:43] VITALS: BP 138/68; PULSE 108
--- NOTE | 2020-07-23 10:05 | P.DS ---
Providers Date of admission: 07/17/20 13:23 Expected date of discharge: 07/23/20 Attending physician: Jon Landon MD Consults: 07/17/20 13:55 Consult Physician Routine Consulting Provider: [facility] Consult Reason/Comments: H&P and medical Do you want consulting provider notified?: Yes Primary care physician: Physician Nonstaff - Discharge Diagnosis(es) (1) Major depressive disorder without psychotic features Current Visit: Yes Status: Acute Priority: High (2) Anxiety disorder, unspecified Current Visit: Yes Status: Acute Priority: Medium (3) Alcohol abuse Current Visit: Yes Status: Acute Priority: High Hospital Course: Admission HPI: Patient is a 59-year-old female who is currently going through a divorce, lives alone in a house has 5 kids. Patient presented to the hospital yesterday with complaints of suicidal ideations, life stressors and alcohol intoxication. Patient had admitted in the ER that she was going noncompliant with her medications. Patient also endorsed several life stressors including going through divorce and financial stressors. Patient's AST/ALT were elevated on admission, UDS was positive for benzodiazepines. Blood alcohol level was 262. Patient was brought in on a petition by her daughter claiming that patient was threatening suicide over phone calls and has a history of jumping off her second story jessee in a suicide attempt 10 months ago. Patient was evaluated today and agreeable to speak with marketing writer. Patient had poor insight and minimized her symptoms and her need for hospitalization. Patient was preoccupied with discharge and claims that she has "lots of phone calls I have to make in things I have to do with my house". She endorsed not feeling "good for the last few weeks" and states that "something was wrong with my blood pressure". She claims that she was having financial issues and also transitioning to selling her house and finding a rental property. She claims that on Thursday she was feeling really sick and feeling dehydrated and also overwhelmed with stressors. She claims that she has been going through divorce as her cheated on her. She claims that she called her daughter to visit her and bring her food as she was not feeling well enough to go and get it herse lf and claims that "she called EMS on me". When asked why she would do that she states that "my daughters try to take my 's side of things and trying to make my divorce worse for me". She claims that her estranged daughter is using this against her. She was minimizing her alcohol use. She states that she was drinking a flask of vodka for the past 2 days. She claims that her mood is "ov erwhelmed" she denies any anxiety this time and claims that her sleep is fair. Hospital course: Upon admission to the unit patient was initially depressed and anxious. Patient was brought up on a petition and certificate and a second certificate was filed with the courts. Patient ended up signing a deferral and agreeable to treatment. Patient got along well with other patients on the unit and followed unit protocol. Patient was compliant with the medications and denied any side effects throughout hospital course. Patient was started on Effexor and titrated up to a dose of 150 mg daily for mood/anxiety. Patient was also started on melatonin 6 mg nightly for insomnia. Patient was on CIWA protocol with when necessary Ativan for alcohol withdrawal. Patient had elevated LFTs on admission , which trended down/improved. Patient spoke of her stressors and engaged in therapy both group and individual. Patient was also seen by medical team for history and physical exam. Patient was evaluated in the ER for her head injury and also had a chest x-ray which showed no acute process. Throughout the course of the hospitalization patient gradually improved with regards to mood, anxiety, withdrawal symptoms, sleep and became future oriented with improved insight and judgment. On the day of discharge patient denied any suicidal or homicidal ideations intent or plan denied any auditory or visual hallucinations. Patient endorsed wanting to live for her future and her children. The patient denied any access to guns or weapons. Patient denied any paranoia and did not endorse any delusions. Patient does have a significant history of substance abuse and was counseled on abstaining from all substances including alcohol and marijuana. Patient was offered however declined inpatient substance-abuse rehab. Patient elected to do outpatient substance use treatment program and continue working with her counselor. Patient was also counseled on the medications and need for regular compliance and was encouraged to follow-up with their outpatient appointment for mental health and also for primary care. Prior to discharge a family meeting will be arranged by secondary social studies teacher to answer any questions and ensure safety upon discharge. Mental status exam: General Appearance: Patient appears to be stated age is alert, pleasant, and cooperative. Patient is in no acute distress and has improved hygiene and grooming Behavior: Patient is calmly seated without any agitated behavior. Speech: Patient's speech is fluent and nonpressured. Mood/Affect: Patient reports their mood is "better", affect is congruent and euthymic. Suicidality/Homicidality: Patient denies having any suicidal or homicidal ideation intent or plan. Perceptions: Patient denies any auditory or visual hallucinations. Though content/process: There is no evidence of any delusional thought content and thought process is linear and goal-directed. more future oriented Memory and concentration: AOX3, grossly intact for the purposes of this session. Can spell "WORLD" backwards correctly. Judgment and insight: improved with guarded prognosis Impression: Major depressive disorder, recurrent, severe, without psychotic features Anxiety disorder unspecified Alcohol abuse Plan: -Continue with discharge today as patient has improved and stabilized psychiatrically and is not currently an imminent threat to herself and/or others. Patient will remain at chronically elevated risk for harm to self and/or others due to her alcohol abuse and chronic history of depression. -Continue medications: Continue with Effexor 150 mg daily for mood/anxiety, melatonin 6 mg nightly for insomnia. -Patient was counseled on the need for medication compliance and appropriate follow-up at mental health and also primary care for medical issues. Patient verbalized understanding and agreed. -Social work to arrange for and conduct family meeting to ensure safety upon discharge and answer any questions/concerns. Social work also to arrange for patients follow up appointments for psychiatric care along with follow up with primary care provider. Patient was asked to also follow-up with her primary care regarding her gait unsteadiness and history of fall prior to coming to the hospital. -Patient counseled on abstaining from recreational drugs and marijuana and alcohol. Was informed/educated on the adverse effects on their physical and mental health. Patient verbally agreed and understood. Patient was offered substance abuse treatment however declined at this time. -Patient was instructed to return to the hospital or seek immediate medical care if their psychiatric or medical symptoms do worsen or reoccur. Allergies Allergy/AdvReac Type Severity Reaction Status Date / Time No Known Allergies Allergy Verified 07/17/20 16:45 Laboratory Results WBC 7.3 k/uL (3.8-10.6) 07/16/20 21:18 RBC 4.26 m/uL (3.80-5.40) 07/16/20 21:18 Hgb 13.9 gm/dL (11.4-16.0) 07/16/20 21:18 Hct 43.4 % (34.0-46.0) 07/16/20 21:18 MCV 101.9 fL (80.0-100.0) H 07/16/20 21:18 MCH 32.6 pg (25.0-35.0) 07/16/20 21:18 MCHC 32.0 g/dL (31.0-37.0) 07/16/20 21:18 RDW 14.5 % (11.5-15.5) 07/16/20 21:18 Plt Count 291 k/uL (150-450) 07/16/20 21:18 Neutrophils % 65 % 07/16/20 21:18 Lymphocytes % 25 % 07/16/20 21:18 Monocytes % 6 % 07/16/20 21:18 Eosinophils % 0 % 07/16/20 21:18 Basophils % 1 % 07/16/20 21:18 Neutrophils # 4.7 k/uL (1.3-7.7) 07/16/20 21:18 Lymphocytes # 1.8 k/uL (1.0-4.8) 07/16/20 21:18 Monocytes # 0.4 k/uL (0-1.0) 07/16/20 21:18 Eosinophils # 0.0 k/uL (0-0.7) 07/16/20 21:18 Basophils # 0.1 k/uL (0-0.2) 07/16/20 21:18 Macrocytosis Slight 07/16/20 21:18 Sodium 139 mmol/L (137-145) 07/16/20 21:18 Potassium 4.2 mmol/L (3.5-5.1) 07/16/20 21:18 Chloride 100 mmol/L (98-107) 07/16/20 21:18 Carbon Dioxide 17 mmol/L (22-30) L 07/16/20 21:18 Anion Gap 22 mmol/L 07/16/20 21:18 BUN 11 mg/dL (7-17) 07/16/20 21:18 Creatinine 0.53 mg/dL (0.52-1.04) 07/16/20 21:18 Est GFR (CKD-EPI)AfAm >90 (>60 ml/min/1.73 sqM) 07/16/20 21:18 Est GFR (CKD-EPI)NonAf >90 (>60 ml/min/1.73 sqM) 07/16/20 21:18 Glucose 86 mg/dL (74-99) 07/16/20 21:[address] Glu mg/dL 94 07/18/20 08:35 Hemoglobin A1c 4.9 % (4.0-6.0) 07/18/20 08:35 Calcium 9.5 mg/dL (8.4-10.2) 07/16/20 21:18 Total Bilirubin 1.4 mg/dL (0.2-1.3) H 07/18/20 08:42 Conjugated Bilirubin 0.0 mg/dL (0.0-0.3) 07/18/20 08:42 Unconjugated Bilirubin 1.2 mg/dL (0.0-1.1) H 07/18/20 08:42 Delta Bilirubin 0.2 mg/dL (0.0-0.2) 07/18/20 08:42 AST 66 U/L (14-36) H 07/18/20 08:42 ALT 75 U/L (4-34) H 07/18/20 08:42 Alkaline Phosphatase 102 U/L (38-126) 07/18/20 08:42 Total Protein 6.4 g/dL (6.3-8.2) 07/18/20 08:42 Albumin 3.7 g/dL (3.5-5.0) 07/18/20 08:42 Triglycerides 49 mg/dL (<150) 07/18/20 08:35 Cholesterol 169 mg/dL (<200) 07/18/20 08:35 LDL Cholesterol, Calc 49 mg/dL (0-99) 07/18/20 08:35 HDL Cholesterol 110 mg/dL (40-60) H 07/18/20 08:35 Lipase 67 U/L (23-300) 07/16/20 21:18 TSH 2.440 mIU/L (0.465-4.680) 07/18/20 08:35 Urine Color Yellow 07/16/20 21:18 Urine Appearance Clear (Clear) 07/16/20 21:18 Urine pH 5.0 (5.0-8.0) 07/16/20 21:18 Ur Specific [place] 1.018 (1.001-1.035) 07/16/20 21:18 Urine Protein 1+ (Negative) H 07/16/20 21:18 Urine Glucose (UA) Negative (Negative) 07/16/20 21:18 Urine Ketones 2+ (Negative) H 07/16/20 21:18 Urine Blood Trace (Negative) H 07/16/20 21:18 Urine Nitrite Negative (Negative) 07/16/20 21:18 Urine Bilirubin Negative (Negative) 07/16/20 21:18 Urine Urobilinogen <2.0 mg/dL (<2.0) 07/16/20 21:18 Ur Leukocyte Esterase Negative (Negative) 07/16/20 21:18 Urine WBC <1 /hpf (0-5) 07/16/20 21:18 Ur Squamous Epith Cells 1 /hpf (0-4) 07/16/20 21:18 Hyaline Casts 28 /lpf (0-2) H 07/16/20 21:18 Urine Mucus Rare /hpf (None) H 07/16/20 21:18 Salicylates <1.0 mg/dL 07/16/20 21:18 Urine Opiates Screen Not Detected (NotDetected) 07/16/20 21:18 Ur Oxycodone Screen Not Detected (NotDetected) 07/16/20 21:18 Urine Methadone Screen Not Detected (NotDetected) 07/16/20 21:18 Ur Propoxyphene Screen Not Detected (NotDetected) 07/16/20 21:18 Acetaminophen <10.0 ug/mL 07/16/20 21:18 Ur Barbiturates Screen Not Detected (NotDetected) 07/16/20 21:18 U Tricyclic Antidepress Not Detected (NotDetected) 07/16/20 21:18 Ur Phencyclidine Scrn Not Detected (NotDetected) 07/16/20 21:18 Ur Amphetamines Screen Not Detected (NotDetected) 07/16/20 21:18 U Methamphetamines Scrn Not Detected (NotDetected) 07/16/20 21:18 U Benzodiazepines Scrn Detected (NotDetected) H 07/16/20 21:18 Urine Cocaine Screen Not Detected (NotDetected) 07/16/20 21:18 U Marijuana (THC) Screen Not Detected (NotDetected) 07/16/20 21:18 Serum Alcohol 262 mg/dL H* 07/16/20 21:18 Vital Signs Temp 98.3 F 07/23/20 06:42 Pulse 108 H 07/23/20 07:49 Resp 16 07/23/20 06:42 BP 138/68 07/23/20 07:49 Pulse Ox 98 07/23/20 06:42 Intake & Output 07/22/20 07/23/20 07/23/20 18:59 06:59 18:59 Weight 62.142 kg Patient Condition at Discharge: Stable Plan - Discharge Summary Discharge Rx Participant: No New Discharge Prescriptions: New Venlafaxine HCl ER [Effexor XR] 150 mg PO DAILY 30 Days cap.er.24h Folic Acid 1 mg PO DAILY 30 Days tab Melatonin 6 mg PO HS 30 Days #0 tablet Multivitamins, Thera [Multivitamin (formulary)] 1 each PO DAILY 30 Days tab Acetaminophen Tab [Tylenol] 650 mg PO Q4HR PRN tab PRN Reason: Pain/Discomfort valACYclovir [Valtrex] 500 mg PO BID 5 Days tab Thiamine [Vitamin B-1] 100 mg PO DAILY 30 Days tab Continue Cetirizine HCl [Zyrtec] 10 mg PO DAILY Omeprazole 20 mg PO DAILY Metoprolol Succinate [Toprol XL] 50 mg PO DAILY Cyanocobalamin (Vitamin B-12) [Vitamin B-12] 1,000 mcg PO DAILY 30 Days tab Discontinued Venlafaxine HCl [Effexor XR] 75 mg PO DAILY Discharge Medication List Cetirizine HCl [Zyrtec] 10 mg PO DAILY 07/17/20 [History] Metoprolol Succinate [Toprol XL] 50 mg PO DAILY 07/17/20 [History] Omeprazole 20 mg PO DAILY 07/17/20 [History] Acetaminophen Tab [Tylenol] 650 mg PO Q4HR PRN tab 07/23/20 [Rx] Cyanocobalamin (Vitamin B-12) [Vitamin B-12] 1,000 mcg PO DAILY 30 Days tab 07/23/20 [Rx] Folic Acid 1 mg PO DAILY 30 Days tab 07/23/20 [Rx] Melatonin 6 mg PO HS 30 Days #0 tablet 07/23/20 [Rx] Multivitamins, Thera [Multivitamin (formulary)] 1 each PO DAILY 30 Days tab 07/23/20 [Rx] Thiamine [Vitamin B-1] 100 mg PO DAILY 30 Days tab 07/23/20 [Rx] Venlafaxine HCl ER [Effexor XR] 150 mg PO DAILY 30 Days cap.er.24h 07/23/20 [Rx] valACYclovir [Valtrex] 500 mg PO BID 5 Days tab 07/23/20 [Rx] Follow up Appointment(s)/Referral(s): Psychiatry, Mj [Other] - 07/30/20 11:40 am (Natalie Daigle Please complete email and call Thursday to confirm appointment ) Nonstaff,Physician [Primary Care Provider] - 1-2 days Activity/Diet/Wound Care/Special Instructions: Activity and diet as tolerated. Avoid the use of street drugs and alcohol. Take all medications as prescribed. When you are in need of refills on your medications please contact your medical provider and/or outpatient psychiatrist to have this done. Please go to scheduled outpatient appointment for aftercare treatment. If symptoms return or become worse, call the crisis line at and/or go to the nearest emergency room for evaluation. Discharge Disposition: HOME SELF-CARE
== END 2020-07-23 12:53 | disposition home or self-care (01) | DRG 885 ==
LOC: EC 20:20 → 3MHU 07-17 13:23
PROVIDERS: ADMIT Psychiatry & Neurology Psychiatry; ATTEND Psychiatry & Neurology Psychiatry
DX: F33.2 Major depressive disorder, recurrent severe without psychotic features (principal); R45.851 Suicidal ideations; F10.130 Alcohol abuse with withdrawal, uncomplicated; Z91.14 Patient's other noncompliance with medication regimen; F10.120 Alcohol abuse with intoxication, uncomplicated; F41.9 Anxiety disorder, unspecified; I10 Essential (primary) hypertension; G47.00 Insomnia, unspecified; Y90.8 Blood alcohol level of 240 mg/100 ml or more; Z79.899 Other long term (current) drug therapy; Z59.9 Problem related to housing and economic circumstances, unspecified; Z63.8 Other specified problems related to primary support group; Z91.5 Personal history of self-harm
CPT/HCPCS: 36415; 71045; 80053; 80061; 80076; 80306; 80320; 80329; 81001; 82075; 83036; 83520; 83690; 84443; 85025; 87086; 93005; 96361; 96374; 96375; 99285